=== PATIENT | female | born 1985 | race Caucasian/White ===

== ENCOUNTER 2016-08-17 13:29 | Emergency (ER) | payer SELFPAY ==
[~2016-08-17] VITALS: Ht 157.5 cm; Wt 56.8 kg
[2016-08-17] MEDS ORDERED: HYDR-309 PO (14:07)
[2016-08-17 14:27] VITALS: BP 140/95
== END 2016-08-17 14:41 | disposition home or self-care (01) ==
LOC: EMS 13:32
DX: S61.214D Laceration without foreign body of right ring finger without damage to nail, subsequent encounter (principal); X58.XXXD Exposure to other specified factors, subsequent encounter
CPT/HCPCS: 99283